=== PATIENT | female | born 1965 | race Caucasian/White ===

== ENCOUNTER 2025-02-23 13:11 | Inpatient (IN) | payer OTHER ==
[2025-02-23 14:11] LABS: Glucose, Urine (Dipstick) Normal (Negative); Leukocyte 100 (Negative); Protein, Urine (Dipstick) 15 mg/dl (Neg-Trace); Specific Gravity, Urine 1.025 (1.005-1.030)
[2025-02-23 14:19] LABS: Bacteria/HPF 3+ HPF (None Seen); CAUTI Indications for Culture Alt mental st,lethar; Oval Fat Bodies/HPF 2+ HPF (None Seen); RBC/HPF 0-3 HPF (0-3)
[2025-02-23 14:20] LABS: Urine Culture Reflex No No
[2025-02-23 14:21] LABS: Cocaine Metabolite Screen Negative (Negative); THC/Cannabinoid Screen Negative (Negative); Tricyclic Screen PRELIM POSITIVE (Negative)
[2025-02-23 14:26] LABS: #Basophils Less than 0.03 10x3/uL (0.0-0.2); #Eosinophils 0.04 10x3/uL (0.0-0.5); #Monocytes 0.60 10x3/uL (0.0-1.1); #Neutrophils 6.75 10x3/uL (1.5-8.4); %Basophils 0.2 % (0.0-2.0); %Eosinophils 0.4 % (0.0-6.0); %Lymphocytes 17.8 % (18.0-47.0); %Monocytes 6.6 % (0.0-10.0); %Neutrophils 74.4 % (40.0-75.0); Hematocrit 37.2 % (34.9-44.5); Hemoglobin 11.7 g/dL (12.0-15.5); Mean Corpuscular Hemoglobin 30.2 pg (27.0-33.0); Mean Corpuscular Volume 95.9 fL (81.6-98.3); Platelet Count 249 10x3/uL (150-450); Red Blood Cell (RBC) Count 3.88 10x6/uL (3.90-5.03); White Blood Cell (WBC) Count 9.08 10x3/uL (3.5-10.5)
[2025-02-23 14:41] LABS: Acetaminophen Less than 10 mcg/mL (Less than 10); Salicylate Less than 8.0 mg/dL (Less than 8.0)
[2025-02-23 14:42] LABS: ALT (SGPT) 11 U/L (Less than 34); AST (SGOT) 18 U/L (11-34); Albumin 3.8 g/dL (3.1-4.5); Alkaline Phosphatase 98 U/L (40-110); Anion Gap 13 mmol/L (10-20); BUN (Urea Nitrogen) 34 mg/dL (9.8-20.1); Bilirubin, Total 0.3 mg/dL (0.3-1.2); Calc. Creatinine Clearance 0 mL/min (70-130); Calcium 8.9 mg/dL (7.8-10.44); Carbon Dioxide 22 mmol/L (22-29); Chloride 110 mmol/L (98-107); Globulin 3.3 g/dL (2.4-3.5); Glucose 118 mg/dL (70-105); Potassium 4.8 mmol/L (3.5-5.1); Sodium 140 mmol/L (136-145)
[2025-02-23] MEDS ORDERED: Ondansetron PF 4 MG/2 ML Vial IVP PRN (16:38)
[2025-02-23] MEDS ORDERED: cefTRIAXone (ROCEPHIN) 2 GM VIAL ONE (16:53)
[2025-02-23] MEDS ORDERED: hydrALAZINE 20 MG/ML VIAL SLOW IVP PRN (18:22)
[2025-02-23] MEDS ORDERED: Electrolyte Replacement Protocol 1 EACH FS SCH (18:45)
[2025-02-23 19:09] LABS: #Basophils 0.04 10x3/uL (0.0-0.2); #Eosinophils 0.08 10x3/uL (0.0-0.5); #Monocytes 0.53 10x3/uL (0.0-1.1); #Neutrophils 4.73 10x3/uL (1.5-8.4); %Basophils 0.5 % (0.0-2.0); %Eosinophils 1.1 % (0.0-6.0); %Lymphocytes 26.0 % (18.0-47.0); %Monocytes 7.3 % (0.0-10.0); %Neutrophils 64.8 % (40.0-75.0); Hematocrit 36.4 % (34.9-44.5); Hemoglobin 11.5 g/dL (12.0-15.5); Mean Corpuscular Hemoglobin 30.7 pg (27.0-33.0); Mean Corpuscular Volume 97.1 fL (81.6-98.3); Platelet Count 234 10x3/uL (150-450); Red Blood Cell (RBC) Count 3.75 10x6/uL (3.90-5.03); White Blood Cell (WBC) Count 7.30 10x3/uL (3.5-10.5)
[2025-02-23 19:29] VITALS: BMI 43.2
[2025-02-23] MEDS: Famotidine 20 MG TAB PO SCH ×2 (21:38→21:43)
[2025-02-24] MEDS: Acetaminophen 325 MG TAB PO PRN (00:13)
[2025-02-24] MEDS: Ketorolac Tromethamine 30 MG (1 mL) VIAL IVP SCH (02:07)
[2025-02-24 04:42] LABS: #Basophils Less than 0.03 10x3/uL (0.0-0.2); #Eosinophils 0.08 10x3/uL (0.0-0.5); #Monocytes 0.51 10x3/uL (0.0-1.1); #Neutrophils 3.57 10x3/uL (1.5-8.4); %Basophils 0.3 % (0.0-2.0); %Eosinophils 1.3 % (0.0-6.0); %Lymphocytes 32.7 % (18.0-47.0); %Monocytes 8.2 % (0.0-10.0); %Neutrophils 57.2 % (40.0-75.0); Hematocrit 32.9 % (34.9-44.5); Hemoglobin 10.4 g/dL (12.0-15.5); Mean Corpuscular Hemoglobin 29.8 pg (27.0-33.0); Mean Corpuscular Volume 94.3 fL (81.6-98.3); Platelet Count 227 10x3/uL (150-450); Red Blood Cell (RBC) Count 3.49 10x6/uL (3.90-5.03); White Blood Cell (WBC) Count 6.24 10x3/uL (3.5-10.5)
[2025-02-24 05:00] LABS: Anion Gap 11 mmol/L (10-20); BUN (Urea Nitrogen) 28 mg/dL (9.8-20.1); Calc. Creatinine Clearance 104 mL/min (70-130); Calcium 8.6 mg/dL (7.8-10.44); Carbon Dioxide 23 mmol/L (22-29); Cardiac Risk 2.4 (Less than 4.5); Chloride 109 mmol/L (98-107); Cholesterol 155 mg/dl (< 200 Desired); Glucose 101 mg/dL (70-105); HDL Cholesterol 64 mg/dL (>60 Neg Risk); LDL Cholesterol, Calculated 75 mg/dL; Potassium 4.5 mmol/L (3.5-5.1); Sodium 138 mmol/L (136-145); Triglycerides 82 mg/dL (Less than 150)
[2025-02-24] MEDS ORDERED: Gabapentin 300 MG CAP PO SCH (09:00)
[2025-02-24] MEDS: Multivit, Therapeutic 1 TAB PO SCH (09:01)
[2025-02-24] MEDS: Folic Acid 1 MG TAB PO SCH (09:02)
[2025-02-24] MEDS: BuPROPion XL 150 MG ER.TAB PO SCH (10:15)
[2025-02-24] MEDS: Rosuvastatin 20 MG TAB PO SCH (10:15)
[2025-02-24] MEDS: Lisinopril 20 MG TAB PO SCH (10:16)
[2025-02-24] MEDS: cefTRIAXone\\ROCEPHIN 1 GM in Sodium Chloride 0.9% 100 ML IVPB SCH (17:30)
[2025-02-24] MEDS ORDERED: DOXEPIN HCL 50 MG PO SCH (21:00)
[2025-02-24] MEDS: QUEtiapine 100 MG TAB PO SCH (21:13)
[2025-02-24] MEDS: Citalopram 20 MG TAB PO SCH (21:13)
[2025-02-25 08:42] LABS: Anion Gap 11 mmol/L (10-20); BUN (Urea Nitrogen) 21 mg/dL (9.8-20.1); Calc. Creatinine Clearance 139 mL/min (70-130); Calcium 9.4 mg/dL (7.8-10.44); Carbon Dioxide 25 mmol/L (22-29); Chloride 108 mmol/L (98-107); Glucose 88 mg/dL (70-105); Potassium 4.7 mmol/L (3.5-5.1); Sodium 139 mmol/L (136-145)
[2025-02-25 08:53] LABS: #Basophils 0.03 10x3/uL (0.0-0.2); #Eosinophils 0.17 10x3/uL (0.0-0.5); #Monocytes 0.59 10x3/uL (0.0-1.1); #Neutrophils 3.10 10x3/uL (1.5-8.4); %Basophils 0.5 % (0.0-2.0); %Eosinophils 2.9 % (0.0-6.0); %Lymphocytes 33.0 % (18.0-47.0); %Monocytes 10.1 % (0.0-10.0); %Neutrophils 53.0 % (40.0-75.0); Hematocrit 33.0 % (34.9-44.5); Hemoglobin 10.7 g/dL (12.0-15.5); Mean Corpuscular Hemoglobin 30.5 pg (27.0-33.0); Mean Corpuscular Volume 94.0 fL (81.6-98.3); Platelet Count 214 10x3/uL (150-450); Red Blood Cell (RBC) Count 3.51 10x6/uL (3.90-5.03); White Blood Cell (WBC) Count 5.85 10x3/uL (3.5-10.5)
[2025-02-25] MEDS: Baclofen 10 MG TAB PO PRN (11:25)
[2025-02-25 12:21] VITALS: TEMP 98.1
[2025-02-25] MEDS ORDERED: Magnesium 2 GM/50 ML(in water) 2 GM in Premix 1 BAG IVPB PRN (12:45)
[2025-02-25] MEDS ORDERED: Potassium Chloride 20 MEQ in Premix 1 BAG IVPB PRN (12:45)
[2025-02-25] MEDS ORDERED: PHOS-NAK 1 PKT PACK PO PRN (12:45)
[2025-02-25 16:46] VITALS: BP 144/81
[2025-02-25] MEDS ORDERED: Rosuvastatin 20 MG TAB PO SCH (21:00)
[2025-02-26] MEDS ORDERED: Thiamine 100 MG TAB PO SCH (09:00)
== END 2025-02-25 18:13 | disposition short-term general hospital (02) | DRG 689 ==
LOC: CSHERS 13:11 → CSHTELE 16:41 → OBSVTOIN 02-24 17:46
PROVIDERS: ADMIT Hospitalist; ATTEND Nurse Practitioner Acute Care
DX: N39.0 Urinary tract infection, site not specified (principal); G93.41 Metabolic encephalopathy; N17.9 Acute kidney failure, unspecified; I10 Essential (primary) hypertension; G62.9 Polyneuropathy, unspecified; F41.9 Anxiety disorder, unspecified; F31.9 Bipolar disorder, unspecified; I44.7 Left bundle-branch block, unspecified; F17.290 Nicotine dependence, other tobacco product, uncomplicated; Z98.890 Other specified postprocedural states
CPT/HCPCS: 36415; 36416; 70450; 80048; 80053; 80061; 80306; 80307; 81001; 83036; 84443; 85025; 87086; 93005; 96374; 96375; 96376; G0378; J0696; J1885; J2250; J3411; J7120

== ENCOUNTER 2025-02-27 14:48 | Emergency (ER) | payer OTHER ==
[2025-02-27 15:36] LABS: #Basophils Less than 0.03 10x3/uL (0.0-0.2); #Eosinophils 0.13 10x3/uL (0.0-0.5); #Monocytes 0.54 10x3/uL (0.0-1.1); #Neutrophils 3.63 10x3/uL (1.5-8.4); %Basophils 0.3 % (0.0-2.0); %Eosinophils 2.0 % (0.0-6.0); %Lymphocytes 31.9 % (18.0-47.0); %Monocytes 8.5 % (0.0-10.0); %Neutrophils 57.0 % (40.0-75.0); Hematocrit 35.6 % (34.9-44.5); Hemoglobin 11.1 g/dL (12.0-15.5); Mean Corpuscular Hemoglobin 29.9 pg (27.0-33.0); Mean Corpuscular Volume 96.0 fL (81.6-98.3); Platelet Count 248 10x3/uL (150-450); Red Blood Cell (RBC) Count 3.71 10x6/uL (3.90-5.03); White Blood Cell (WBC) Count 6.37 10x3/uL (3.5-10.5)
[2025-02-27 15:50] LABS: ALT (SGPT) 11 U/L (Less than 34); AST (SGOT) 22 U/L (11-34); Albumin 3.7 g/dL (3.1-4.5); Alkaline Phosphatase 86 U/L (40-110); Anion Gap 14 mmol/L (10-20); BUN (Urea Nitrogen) 39 mg/dL (9.8-20.1); Bilirubin, Total 0.1 mg/dL (0.3-1.2); Calc. Creatinine Clearance 0 mL/min (70-130); Calcium 8.9 mg/dL (7.8-10.44); Carbon Dioxide 26 mmol/L (22-29); Chloride 107 mmol/L (98-107); Globulin 3.1 g/dL (2.4-3.5); Glucose 93 mg/dL (70-105); Lipase 48 U/L (8-78); Potassium 4.8 mmol/L (3.5-5.1); Sodium 142 mmol/L (136-145)
[2025-02-27 15:52] LABS: Troponin I Less than 0.010 ng/mL (< 0.028)
[2025-02-27] MEDS ORDERED: Multivitamins, Adult 10 ML, Thiamine HCl 100 MG, Folic Acid 1 MG in Dextrose 5 %-0.45 %... IV SCH (17:00)
[2025-02-27 18:57] LABS: Glucose, Urine (Dipstick) Normal (Negative); Leukocyte Negative (Negative); Protein, Urine (Dipstick) 15 mg/dl (Neg-Trace); Specific Gravity, Urine 1.025 (1.005-1.030)
[2025-02-27 19:08] LABS: Bacteria/HPF Rare-Few HPF (None Seen); CAUTI Indications for Culture Pelvic or flank pain; RBC/HPF None Seen HPF (0-3); WBC/HPF 0-3 HPF (0-3)
[2025-02-27 19:09] LABS: Mucous/LPF 1+ LPF (<2+); Urine Culture Reflex No No
[2025-02-27 22:04] LABS: Troponin I Less than 0.010 ng/mL (< 0.028)
[2025-02-27 22:09] LABS: ALT (SGPT) 11 U/L (Less than 34); AST (SGOT) 21 U/L (11-34); Albumin 3.6 g/dL (3.1-4.5); Alkaline Phosphatase 87 U/L (40-110); Anion Gap 14 mmol/L (10-20); BUN (Urea Nitrogen) 37 mg/dL (9.8-20.1); Bilirubin, Total 0.2 mg/dL (0.3-1.2); Calc. Creatinine Clearance 0 mL/min (70-130); Calcium 8.4 mg/dL (7.8-10.44); Carbon Dioxide 23 mmol/L (22-29); Chloride 108 mmol/L (98-107); Globulin 3.3 g/dL (2.4-3.5); Glucose 108 mg/dL (70-105); Potassium 4.3 mmol/L (3.5-5.1); Sodium 141 mmol/L (136-145)
== END 2025-02-27 22:23 | disposition home or self-care (01) ==
LOC: CSHERS 14:48
DX: R42 Dizziness and giddiness (principal); N17.9 Acute kidney failure, unspecified; I10 Essential (primary) hypertension; F17.290 Nicotine dependence, other tobacco product, uncomplicated; Z79.899 Other long term (current) drug therapy
CPT/HCPCS: 36415; 71045; 80053; 81001; 82607; 82746; 83690; 83880; 84484; 85025; 93005; 94760; 96374; J3411; J7042